=== PATIENT | male | born 1995 | race Hispanic/Latino ===

== ENCOUNTER 2019-04-02 18:43 | Emergency (ER) | payer SELFPAY ==
[2019-04-02] MEDS ORDERED: CLINDAMYCIN 300 MG CAP ONE (19:02)
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
[2019-04-02 19:18] VITALS: BP 142/77
[2019-04-02] MEDS ORDERED: LIDOCAINE-MPF (1%) 10 MG/1 ML VIAL 5 ML INFILTRATI ONE (21:03)
[2019-04-02] MEDS ORDERED: TETANUS,DIPH,PERTUSS(ACELL) VACCINE 0.5 ML SYRINGE IM ONE (21:04)
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
== END 2019-04-02 22:11 | disposition home or self-care (01) ==
LOC: ED 18:43
DX: S71.112A Laceration without foreign body, left thigh, initial encounter (principal); B19.20 Unspecified viral hepatitis C without hepatic coma; Z79.899 Other long term (current) drug therapy; Z91.040 Latex allergy status; W26.0XXA Contact with knife, initial encounter; Y93.89 Activity, other specified; Y92.89 Other specified places as the place of occurrence of the external cause; Y99.8 Other external cause status
CPT/HCPCS: 90471; 90715

== ENCOUNTER 2019-04-14 10:18 | Emergency (ER) | payer SELFPAY ==
[2019-04-14 10:23] VITALS: BP 153/98
[2019-04-14] MEDS ORDERED: traMADol 50 MG TAB PO ONE (11:42)
--- NOTE | 2019-04-14 12:22 | XRay Report ---
XR spine lumbosacral 2-3V INDICATION / CLINICAL INFORMATION: back pain s/p fall. COMPARISON: None available. FINDINGS: BONES/JOINT(S): No acute fracture or subluxation. No significant degenerative changes. SOFT TISSUES: No significant abnormality. ADDITIONAL FINDINGS: None. Signer Name: Aric Cleaning MD Signed: 04/14/2019 12:17 PM Workstation Name: [id number]
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
== END 2019-04-14 13:37 | disposition home or self-care (01) ==
LOC: ED 10:18
DX: S00.81XD Abrasion of other part of head, subsequent encounter (principal); M54.5 Low back pain; F17.200 Nicotine dependence, unspecified, uncomplicated; X58.XXXD Exposure to other specified factors, subsequent encounter
CPT/HCPCS: 72100